=== PATIENT | female | born 1930 | race Caucasian/White ===

== ENCOUNTER → 2018-11-02 | Outpatient (CLI) | payer MEDICARE ==
--- NOTE | 2018-11-03 10:17 | REP ---
COOKIE SWALLOW The procedure was performed under the direct supervision of Dr. guillen. The procedure was performed with Stacia Valente from speech pathology present. 5 ml aliquots of honey, nectar, thin, , pudding and mixed fruit consistency barium was administered. With thin and mixed fruit consistency there is aspiration without cough response. The detailed report of this examination will be provided by speech pathology. 1.7 minutes of fluoroscopy time was utilized for this procedure. Reviewed by KOFFI Vazquez 11/02/2018 02:58 P Electronically Signed by Jam Guillen MD 11/03/2018 10:08 A
== END ==
LOC: M ST 11:52
PROVIDERS: ATTEND Otolaryngology
DX: R13.12 Dysphagia, oropharyngeal phase (principal); R05 Cough